=== PATIENT | male | born 1965 | race Caucasian/White ===

== ENCOUNTER 2019-09-13 21:39 | Inpatient (IN) | payer MEDICARE ==
[~2019-09-13] VITALS: Ht 182.9 cm; Wt 90.1 kg
[~2019-09-13 21:39] MED LIST: ACAM333T7 PO; AMLO-150 PO; BACI3.5O8 TP; CHLO10CA6 PO; ENAL10TA PO; HYDR25TA6 PO; METO25TA35 PO; MULT1TAB60 PO; QUET25TA7 PO; SERT100T32 PO; SERT50TA28 PO; SULF1TAB23 PO; THIA100T67 PO; TRAZ-137 PO
[2019-09-13] MEDS ORDERED: SODIUM CHLORIDE 0.9% 1,000ML IVBOLUS ONE (22:00)
[2019-09-13] MEDS ORDERED: MAGNESIUM SULFATE 1 GM, THIAMINE 100 MG, FOLIC ACID 1 MG, MVI ADULT 10 ML in SODIUM CHL... IV ONE (22:00)
[2019-09-13] MEDS ORDERED: ONDANSETRON 2MG/ML, 2ML IVPush ONE (22:00)
[2019-09-13] MEDS ORDERED: LORazepam 2 MG/ML, 1ML ONE (22:07)
[2019-09-13] MEDS ORDERED: ONDANSETRON 2MG/ML, 2ML ONE (22:09)
[2019-09-13] MEDS: LORazepam 2 MG/ML, 1ML IVPush PRN ×2 (22:23→22:49)
[2019-09-13 22:33] LABS: BASOPHILS # (AUTO) 0.03 x10^3/uL (0-0.1); BASOPHILS % (AUTO) 0 % (0-1); EOSINOPHILS # (AUTO) 0.01 x10^3/uL (0-0.4); EOSINOPHILS % (AUTO) 0 % (1-7); LYMPHOCYTES # (AUTO) 0.98 x10^3/uL (1-3.4); LYMPHOCYTES % (AUTO) 11 % (22-44); MD NO; MEAN CORPUSCULAR HEMOGLOBIN 27.6 pg (27.5-34.5); MEAN CORPUSCULAR HGB CONC 32.4 g/dL (33.2-36.2); MEAN CORPUSCULAR VOLUME 85.1 fL (81-97); MEAN PLATELET VOLUME 6.6 fL (7.4-10.4); MONOCYTES # (AUTO) 0.33 x10^3/uL (0.2-0.8); MONOCYTES % (AUTO) 4 % (2-9); NEUTROPHILS # (AUTO) 7.93 x10^3/uL (1.8-6.8); NEUTROPHILS % (AUTO) 86 % (42-75); PLATELET COUNT 447 x10^3/uL (130-400); RED CELL DISTRIBUTION WIDTH 21.8 % (9.4-14.8)
[2019-09-13 22:40] LABS: ALBUMIN 3.8 g/dL (3.4-5.0); ANION GAP 17 mmol/L (5-15); CALCIUM 8.1 mg/dL (8.5-10.1); CHLORIDE 105 mmol/L (98-107)
[2019-09-13 22:50] LABS: SALICYLATE LEVEL < 1.7 mg/dL (2.8-20.0)
[2019-09-13 22:51] LABS: ALKALINE PHOSPHATASE 93 U/L (45-117); BILIRUBIN,TOTAL 0.4 mg/dL (0.2-1.0); CREATININE 0.86 mg/dL (0.7-1.3); TOTAL PROTEIN 7.5 g/dL (6.4-8.2)
--- NOTE | 2019-09-13 23:11 | NUR ---
PT INTOXICATED AND DIFFICULT TO REASON WITH. PT CONTINUES TO TRY TO GET OUT OF BED AND HAS BEEN INFORMED TO STAY IN BED SEVERAL TIMES. ER PA NOTIFIED OF DIFFUCULTY WITH PT.
[2019-09-13 23:18] LABS: AMPHETAMINE SCREEN, URINE Negative (Negative); BARBITURATE SCREEN, URINE Negative (Negative); BENZODIAZEPINE SCREEN, URINE Negative (Negative); CANNABINOID SCREEN, URINE Negative (Negative); COCAINE SCREEN, URINE Negative (Negative); METHADONE SCREEN, URINE Negative (Negative); OPIATE SCREEN, URINE Negative (Negative)
[2019-09-13 23:18] LABS: ALANINE AMINOTRANSFERASE 43 U/L (12-78)
--- NOTE | 2019-09-13 23:20 | NUR ---
LAB CALLS WITH CRITICAL ETOH [id number]
--- NOTE | 2019-09-13 23:21 | NUR ---
PT REMOVED ALL MONITORING DEVICES
--- NOTE | 2019-09-13 23:33 | NUR ---
BOTH BEDRAILS UP, PT INFORMED BY ME AND DR GONZALEZ THAT IF HE ATTEMPTS TO GET OUT OF BED ONE MORE TIME SECURITY WILL BE IN TO RESTRAIN HIM TO THE BED. PT KEEPS STATING HE WANTS MORE ATIVAN FOR SLEEP. DOOR CLOSED TO PT ROOM AND SITTER WAS INFORMED NOT TO GO IN ROOM AND TO LET ME KNOW IF PT TRIES TO GET OUT OF BED AGAIN.
[2019-09-14] VITALS (7 sets, daily range): BP systolic 157–187; BP diastolic 71–114
--- NOTE | 2019-09-14 | NUR ---
PT CONTINUES TO YELL FROM ROOM AND ATTEMPT TO GET OUT OF BED. PT UP AND BANGING ON THE DOOR BECUASE HE CANT FIGURE OUT HOW TO OPEN IT. SECURITY CALLED AND 4POINT EVANGELISTA LOCKING RESTRAINTS APPLIED.
[2019-09-14] MEDS ORDERED: LORazepam 2 MG/ML, 1ML ONE ×3 (01:18→09:58)
[2019-09-14] MEDS: LORazepam 2 MG/ML, 1ML IVPush PRN ×2 (01:23→08:32)
--- NOTE | 2019-09-14 01:23 | NUR ---
TASK RN: IVF CONTINUES TO INFUSE. PT YELLING, "I FEEL LIKE I'M IN A BONDAGE MOVIE, I HAVE TO COME OUT OF THESE RESTRAINTS". PT NOTABLY TREMULOUS & TACHY. MEDICATED PER EMAR WITH ATIVAN. PT IRATE, BUT IS RATIONAL AT THIS TIME. MADE AWARE THAT RESTRAINTS WILL BE REMOVED [facility] IMPROVEMENT IN BEHAVIOR. PT DEMONSTRATES UNDERSTANDING. SPO2 >90% ON RA.
--- NOTE | 2019-09-14 01:40 | NUR ---
PT CONTINUES TO YELL FROM ROOM
[2019-09-14] MEDS ORDERED: ZIPRASIDONE 20 MG INJ IM ONE ×2 (01:50→02:00)
--- NOTE | 2019-09-14 02:09 | NUR ---
ER MD GONZALEZ IN TO REASSESS PT. ORDERES RCIEVED FOR SANTY ANDREWS. PT MEDICATED AND PT INFORMED THAT IF HE CONTINUES TO YELL AND ACT OUT, HE WILL CONTINUE TO NEED THE RESTRAINTS. ONCE BEHAVIOR HAS IMPORVED, RESTRAINTS CAN BE REMOVED. PT VERBALIZED UNDERSTANDING, ALTHOUGH CONTINUES TO YELL ANYWAY. WATER PROVIDED.
--- NOTE | 2019-09-14 02:43 | NUR ---
PT CALMER AND DOZING INTERMITTANTLY. 2 LOWER EXTREMITY RESTRAINTS REMOVED. PT WITH HR IN THE 120S/130S. ER MD GONZALEZ AND LANCE SKY NOTIFIED.
--- NOTE | 2019-09-14 03:06 | NUR ---
PT HAS GONE A TOTAL OF 1 HOUR WITH OUT YELLING OR BEHAVING BADLY. ALL RESTRAINTS REMOVED. SALVATORE JAVIER AND JOSE DANIEL NOTIFIED.
--- NOTE | 2019-09-14 03:29 | NUR ---
PT REMAINS CALM AND COOPERATIVE. PT PROVIDED SNACKS PER REQUEST.
--- NOTE | 2019-09-14 04:27 | NUR ---
PT RESTING ON GURNEY WITH EYES CLOSED. RESPIRATIONS EVEN AND UNLABORED. SITTER AT BEDSIDE FOR FREQUENT CHECKS.
--- NOTE | 2019-09-14 06:04 | NUR ---
MEAL TRAY ORDERED
--- NOTE | 2019-09-14 06:29 | NUR ---
PT STATES HE DOES NOT WANT TO LIVE ANYMORE BUT HAS NO PLAN TO ACTUALLY TAKE HIS LIFE AND HAS NOT HAD ANY THOUGHTS ABOUT HOW HE MIGHT DO IT
[2019-09-14] MEDS ORDERED: CHLORDIAZEPOXIDE 25 MG CAPSULE PO PRN (06:30)
--- NOTE | 2019-09-14 07:06 | NUR ---
REPORT RECEIVED FROM JOSEMANUEL CERRATO.
--- NOTE | 2019-09-14 07:13 | NUR ---
MEDICATION ORDERED FROM PHARMACY AT THIS TIME.
--- NOTE | 2019-09-14 07:19 | NUR ---
WATER GIVEN AT THIS TIME.
--- NOTE | 2019-09-14 07:40 | NUR ---
PT MEDICATED PER EMAR. PT TOLERATED WELL.
--- NOTE | 2019-09-14 07:49 | NUR ---
MEAL TRAY PROVIDED AT THIS TIME.
--- NOTE | 2019-09-14 08:34 | NUR ---
PT MEDICATED PER EMAR FOR ANXIETY. PT TOLERATED WELL.
--- NOTE | 2019-09-14 09:06 | NUR ---
PT MOVED TO ROOM 40 BECAUSE TV ROOM IN 38 NOT WORKING. PT ALEK LIKE TO WATCH TV AND LAMPS TESTER AND INSPECTOR NOTIFIED.
--- NOTE | 2019-09-14 09:50 | NUR ---
edmd at bedside to re-assess at this time. pt's aox4. resps even and unlabored.
[2019-09-14] MEDS ORDERED: LORazepam 2 MG/ML, 1ML IVPush PRN (10:00)
--- NOTE | 2019-09-14 10:02 | NUR ---
pt medicated per emar. pt tolerated well.
[2019-09-14] MEDS ORDERED: SODIUM CHLORIDE 0.9% 1,000 ML IV SCH (10:22)
[2019-09-14] MEDS ORDERED: ONDANSETRON 2MG/ML, 2ML IVPush PRN (10:30)
[2019-09-14] MEDS ORDERED: MULTIVITAMIN 1 TABLET PO SCH (10:30)
[2019-09-14] MEDS ORDERED: THIAMINE 100MG TABLET PO SCH (10:30)
[2019-09-14] MEDS ORDERED: LORazepam 0.5MG TABLET PO PRN (10:30)
[2019-09-14] MEDS ORDERED: LORazepam 2 MG/ML, 1ML IV PRN ×2 (10:30)
[2019-09-14] MEDS ORDERED: FOLIC ACID 1 MG TABLET PO SCH (10:30)
[2019-09-14] MEDS ORDERED: LORazepam 1MG TABLET PO PRN ×3 (10:30)
[2019-09-14] MEDS ORDERED: PROMETHAZINE 25 MG/ML, 1ML IM PRN (10:30)
--- NOTE | 2019-09-14 10:31 | NUR ---
report given to jesus degroot. all questions answered.
[2019-09-14] MEDS: LORazepam 2 MG/ML, 1ML IV PRN ×6 (11:23→22:58)
[2019-09-14] MEDS ORDERED: CHLORDIAZEPOXIDE 25 MG CAPSULE ONE (11:43)
[2019-09-14] MEDS ORDERED: CALCIUM CARBONATE 500 MG TABLET ONE (11:44)
[2019-09-14] MEDS ORDERED: ENOXAPARIN 40 MG/0.4 ML ONE (11:44)
[2019-09-14] MEDS ORDERED: THIAMINE 100MG TABLET ONE (11:44)
[2019-09-14] MEDS ORDERED: FOLIC ACID 1 MG TABLET ONE (11:44)
[2019-09-14] MEDS ORDERED: MULTIVITAMIN 1 TABLET ONE (11:44)
[2019-09-14] MEDS: CHLORDIAZEPOXIDE 25 MG CAPSULE PO SCH ×2 (12:16→19:59)
[2019-09-14] MEDS: CALCIUM CARBONATE 500 MG TABLET PO SCH ×2 (12:16→19:59)
[2019-09-14] MEDS: ENOXAPARIN 40 MG/0.4 ML SQ SCH (12:17)
[2019-09-14] MEDS ORDERED: KETOROLAC 30 MG/1 ML IVPush ONE (17:00)
[2019-09-14 19:07] LABS: MICROSCOPIC AUTO
[2019-09-14 19:08] LABS: CULTURE INDICATED? NO
[2019-09-14] MEDS: hydrALAzine 20 MG/ML, 1ML IVPush PRN (21:45)
[2019-09-14] MEDS: LABETALOL 5MG/ML, 20ML IVPush PRN (23:38)
[2019-09-15 00:02] VITALS: BP 164/99
[2019-09-15] MEDS: LORazepam 2 MG/ML, 1ML IV PRN ×4 (00:03→04:10)
[2019-09-15 00:49] VITALS: BP 168/95
[2019-09-15 01:43] VITALS: BP 166/115
[2019-09-15] MEDS: hydrALAzine 20 MG/ML, 1ML IVPush PRN ×2 (01:54→11:00)
[2019-09-15 02:30] VITALS: BP 155/104
[2019-09-15] MEDS ORDERED: DEXMEDETOMIDINE 200 MCG in SODIUM CHLORIDE 0.9% 48 ML IV PRN (04:58)
[2019-09-15] MEDS ORDERED: PHENOBARBITAL SODIUM 780 MG in SODIUM CHLORIDE 0.9% 50 ML IVPB ONE (05:00)
[2019-09-15] MEDS ORDERED: PHARMACY INSTRUCTION MC PRN ×4 (05:00)
[2019-09-15 06:14] LABS: ALANINE AMINOTRANSFERASE 46 U/L (12-78); ALBUMIN 3.1 g/dL (3.4-5.0); ANION GAP 10 mmol/L (5-15); BASOPHILS # (AUTO) 0.01 x10^3/uL (0-0.1); BASOPHILS % (AUTO) 0 % (0-1); CALCIUM 8.5 mg/dL (8.5-10.1); CHLORIDE 106 mmol/L (98-107); EOSINOPHILS # (AUTO) 0.06 x10^3/uL (0-0.4); EOSINOPHILS % (AUTO) 1 % (1-7); LYMPHOCYTES # (AUTO) 0.99 x10^3/uL (1-3.4); LYMPHOCYTES % (AUTO) 13 % (22-44); MD NO; MEAN CORPUSCULAR HEMOGLOBIN 27.4 pg (27.5-34.5); MEAN CORPUSCULAR HGB CONC 32.4 g/dL (33.2-36.2); MEAN CORPUSCULAR VOLUME 84.6 fL (81-97); MEAN PLATELET VOLUME 7.1 fL (7.4-10.4); MONOCYTES # (AUTO) 0.38 x10^3/uL (0.2-0.8); MONOCYTES % (AUTO) 5 % (2-9); NEUTROPHILS # (AUTO) 6.24 x10^3/uL (1.8-6.8); NEUTROPHILS % (AUTO) 81 % (42-75); PLATELET COUNT 236 x10^3/uL (130-400); RED BLOOD COUNT 3.98 x10^6/uL (4.38-5.82); RED CELL DISTRIBUTION WIDTH 21.1 % (9.4-14.8)
[2019-09-15 06:17] LABS: ALKALINE PHOSPHATASE 94 U/L (45-117); BILIRUBIN,TOTAL 0.9 mg/dL (0.2-1.0); CREATININE 0.67 mg/dL (0.7-1.3); TOTAL PROTEIN 6.3 g/dL (6.4-8.2)
[2019-09-15] MEDS: POTASSIUM CHLORIDE 20 MEQ, MAGNESIUM SULFATE 1 GM, THIAMINE 200 MG, FOLIC ACID 1 MG, MV... IV SCH (08:26)
[2019-09-15] MEDS: CALCIUM CARBONATE 500 MG TABLET PO SCH (08:27)
[2019-09-15] MEDS: ENOXAPARIN 40 MG/0.4 ML SQ SCH (09:41)
[2019-09-15] MEDS ORDERED: SODIUM CHLORIDE 0.9% 1,000 ML IV SCH (10:22)
[2019-09-15] MEDS ORDERED: SODIUM CHLORIDE 0.9% IVPB ONE (10:30)
[2019-09-15] MEDS ORDERED: PHENOBARBITAL SODIUM IVPB ONE (10:30)
[2019-09-15] MEDS ORDERED: PHENOBARBITAL ETOH DETOX PER PHARMACY MC PRN (11:00)
[2019-09-15] MEDS: OXYcodone IR 5MG TABLET PO PRN ×2 (14:20→15:14)
[2019-09-15] MEDS: PHENOBARBITAL 20 MG/5 ML ORAL SOL PO SCH (16:44)
[2019-09-15] MEDS ORDERED: PHENOBARBITAL SODIUM 65 MG/ML, 1ML IM SCH (17:00)
[2019-09-16 04:44] LABS: ANION GAP 8 mmol/L (5-15); CALCIUM 8.4 mg/dL (8.5-10.1); CHLORIDE 103 mmol/L (98-107)
[2019-09-16 04:45] LABS: CREATININE 0.57 mg/dL (0.7-1.3)
[2019-09-16] MEDS: PHENOBARBITAL 20 MG/5 ML ORAL SOL PO SCH ×2 (05:13→17:41)
[2019-09-16] MEDS ORDERED: POTASSIUM CHLORIDE 20 MEQ TAB.ER.PRT PO ONE (07:00)
[2019-09-16] MEDS: POTASSIUM CHLORIDE 20 MEQ, MAGNESIUM SULFATE 1 GM, THIAMINE 200 MG, FOLIC ACID 1 MG, MV... IV SCH (08:15)
[2019-09-16] MEDS: ENOXAPARIN 40 MG/0.4 ML SQ SCH (11:09)
[2019-09-16] MEDS: OXYcodone IR 5MG TABLET PO PRN (21:24)
[2019-09-16] MEDS: LABETALOL 5MG/ML, 20ML IVPush PRN (21:37)
[2019-09-17] MEDS: PHENOBARBITAL 20 MG/5 ML ORAL SOL PO SCH ×2 (05:14→17:55)
[2019-09-17 08:00] VITALS: BP 135/86
[2019-09-17] MEDS: CARVEDILOL 6.25 MG TABLET PO SCH ×2 (08:44→17:55)
[2019-09-17] MEDS: ENOXAPARIN 40 MG/0.4 ML SQ SCH (08:44)
[2019-09-17] MEDS: LISINOPRIL 10 MG TABLET PO SCH ×2 (08:44→21:18)
[2019-09-17] MEDS: OXYcodone IR 5MG TABLET PO PRN ×4 (08:45→22:20)
[2019-09-17 15:09] VITALS: BP 109/73
[2019-09-17 17:50] VITALS: BP 137/91
[2019-09-17 19:38] VITALS: BP 119/61
[2019-09-18 01:47] VITALS: BP 130/90
[2019-09-18] MEDS: OXYcodone IR 5MG TABLET PO PRN ×3 (02:36→13:04)
[2019-09-18] MEDS: CARVEDILOL 6.25 MG TABLET PO SCH (06:03)
[2019-09-18] MEDS: PHENOBARBITAL 20 MG/5 ML ORAL SOL PO SCH ×2 (06:03→17:22)
[2019-09-18 07:20] VITALS: BP 136/86
[2019-09-18 09:48] LABS: ANION GAP 7 mmol/L (5-15); CALCIUM 8.3 mg/dL (8.5-10.1); CHLORIDE 106 mmol/L (98-107); CREATININE 0.76 mg/dL (0.7-1.3)
[2019-09-18 09:55] LABS: BASOPHILS # (AUTO) 0.02 x10^3/uL (0-0.1); BASOPHILS % (AUTO) 0 % (0-1); EOSINOPHILS # (AUTO) 0.37 x10^3/uL (0-0.4); EOSINOPHILS % (AUTO) 6 % (1-7); LYMPHOCYTES # (AUTO) 1.05 x10^3/uL (1-3.4); LYMPHOCYTES % (AUTO) 16 % (22-44); MD NO; MEAN CORPUSCULAR HEMOGLOBIN 27.1 pg (27.5-34.5); MEAN CORPUSCULAR HGB CONC 31.6 g/dL (33.2-36.2); MEAN CORPUSCULAR VOLUME 85.9 fL (81-97); MEAN PLATELET VOLUME 6.8 fL (7.4-10.4); MONOCYTES # (AUTO) 0.39 x10^3/uL (0.2-0.8); MONOCYTES % (AUTO) 6 % (2-9); NEUTROPHILS # (AUTO) 4.77 x10^3/uL (1.8-6.8); NEUTROPHILS % (AUTO) 72 % (42-75); PLATELET COUNT 271 x10^3/uL (130-400); RED BLOOD COUNT 4.22 x10^6/uL (4.38-5.82); RED CELL DISTRIBUTION WIDTH 21.2 % (9.4-14.8)
[2019-09-18 09:57] VITALS: BP 120/69
[2019-09-18] MEDS: LISINOPRIL 10 MG TABLET PO SCH (09:58)
[2019-09-18] MEDS: ENOXAPARIN 40 MG/0.4 ML SQ SCH (09:58)
[2019-09-18] MEDS: POTASSIUM CHLORIDE 20 MEQ, MAGNESIUM SULFATE 1 GM, THIAMINE 200 MG, FOLIC ACID 1 MG, MV... IV SCH (13:03)
[2019-09-18 13:39] VITALS: BP 134/72
[2019-09-18] MEDS ORDERED: CARV6.2512 PO (14:47)
[2019-09-18] MEDS ORDERED: PHEN20EL8 PO (14:47)
[2019-09-18] MEDS ORDERED: LISI-167 PO (14:47)
[2019-09-19] MEDS ORDERED: PHENOBARBITAL 20 MG/5 ML ORAL SOL PO SCH (17:00)
[2019-09-20] MEDS ORDERED: PHENOBARBITAL 20 MG/5 ML ORAL SOL PO SCH (17:00)
== END 2019-09-18 17:31 | DRG 896 ==
LOC: ED 22:12 → EDIP 09-14 11:16 → 4EST 09-14 11:37 → CCU 09-15 02:56 → 4EST 09-17 14:50
PROVIDERS: ADMIT Internal Medicine; ATTEND Internal Medicine
DX: F10.231 Alcohol dependence with withdrawal delirium (principal); G93.41 Metabolic encephalopathy; R45.851 Suicidal ideations; E87.2 Acidosis; K70.10 Alcoholic hepatitis without ascites; Y90.8 Blood alcohol level of 240 mg/100 ml or more; K70.9 Alcoholic liver disease, unspecified; D64.9 Anemia, unspecified; E78.5 Hyperlipidemia, unspecified; E83.51 Hypocalcemia; F10.229 Alcohol dependence with intoxication, unspecified; F32.9 Major depressive disorder, single episode, unspecified; F41.9 Anxiety disorder, unspecified; F91.9 Conduct disorder, unspecified; G47.00 Insomnia, unspecified; I10 Essential (primary) hypertension; Z78.1 Physical restraint status; Z91.5 Personal history of self-harm; Z79.899 Other long term (current) drug therapy
CPT/HCPCS: 36415; 70450; 80048; 80053; 80307; 81001; 83605; 83690; 83735; 84100; 85025; 87081; 93005; 96361; 96365; 96366; 96372; 96375; 96376; G0378; J1650; J1885; J2405; J2560; J3411; J3475; J3480; J3486; J0360; J2060; J7030

== ENCOUNTER 2019-09-18 14:52 | Inpatient (IN) | payer MEDICARE ==
[~2019-09-18] VITALS: Ht 188 cm; Wt 89.7 kg
[~2019-09-18 14:52] MED LIST changes: +CARV6.2512 PO; +LISI-167 PO; +PHEN20EL8 PO
[2019-09-18] MEDS ORDERED: POLYETHYLENE GLYCOL 17 GM PACKET PO PRN (15:30)
[2019-09-18] MEDS ORDERED: BISACODYL 10 MG SUPP PR PRN (15:30)
[2019-09-18] MEDS ORDERED: DOCUSATE 100 MG CAPSULE PO PRN (15:30)
[2019-09-18] MEDS ORDERED: PLEASE ENTER HEIGHT AND WEIGHT MC SCH (18:00)
[2019-09-18 18:04] LABS: FREE T4 (FREE THYROXINE) 1.11 ng/dL (0.76-1.46)
[2019-09-18 18:31] VITALS: BP 151/99
[2019-09-18 19:33] VITALS: BP 120/86
[2019-09-18] MEDS: TRAZODONE 100MG TABLET PO PRN (20:02)
[2019-09-18] MEDS: QUETIAPINE 25MG TABLET PO PRN (20:02)
[2019-09-18] MEDS: ACAMPROSATE 333 MG TABLET.DR PO SCH (20:02)
[2019-09-19 07:28] VITALS: BP 127/84
[2019-09-19] MEDS: ACAMPROSATE 333 MG TABLET.DR PO SCH ×3 (08:26→20:45)
[2019-09-19] MEDS: QUETIAPINE 25MG TABLET PO PRN (08:59)
[2019-09-19] MEDS ORDERED: SERTRALINE 100MG TABLET PO SCH (09:00)
[2019-09-19 19:27] VITALS: BP 144/83
[2019-09-20 07:30] VITALS: BP 117/78
[2019-09-20] MEDS: QUETIAPINE 25MG TABLET PO PRN ×2 (08:26→16:14)
[2019-09-20] MEDS: SERTRALINE 100MG TABLET PO SCH (08:26)
[2019-09-20] MEDS: ACAMPROSATE 333 MG TABLET.DR PO SCH ×3 (08:37→20:33)
[2019-09-20 19:44] VITALS: BP 142/75
[2019-09-20] MEDS: TRAZODONE 100MG TABLET PO PRN (20:34)
[2019-09-20] MEDS: ACETAMINOPHEN 325 MG TABLET PO PRN (20:34)
[2019-09-21 07:35] VITALS: BP 136/83
[2019-09-21] MEDS: ACAMPROSATE 333 MG TABLET.DR PO SCH ×4 (08:53→20:38)
[2019-09-21] MEDS: SERTRALINE 100MG TABLET PO SCH (08:53)
[2019-09-21] MEDS: QUETIAPINE 25MG TABLET PO PRN ×2 (10:08→15:59)
[2019-09-21 20:09] VITALS: BP 119/72
[2019-09-21] MEDS: TRAZODONE 100MG TABLET PO PRN (22:03)
[2019-09-22] MEDS: QUETIAPINE 25MG TABLET PO PRN ×3 (04:39→23:07)
[2019-09-22 07:30] VITALS: BP 134/92
[2019-09-22] MEDS: SERTRALINE 100MG TABLET PO SCH (07:45)
[2019-09-22] MEDS: ACAMPROSATE 333 MG TABLET.DR PO SCH ×3 (08:13→21:00)
[2019-09-22] MEDS: NICOTINE GUM 2 MG BC PRN ×2 (16:46→21:03)
[2019-09-22 19:00] VITALS: BP 128/79
[2019-09-22] MEDS: TRAZODONE 100MG TABLET PO PRN (21:04)
[2019-09-23] MEDS: NICOTINE GUM 2 MG BC PRN ×4 (05:12→20:04)
[2019-09-23 07:24] VITALS: BP 124/81
[2019-09-23] MEDS: SERTRALINE 100MG TABLET PO SCH (08:30)
[2019-09-23] MEDS: ACAMPROSATE 333 MG TABLET.DR PO SCH ×4 (08:30→21:52)
[2019-09-23] MEDS: QUETIAPINE 25MG TABLET PO PRN ×3 (08:31→23:55)
[2019-09-23] MEDS: ACETAMINOPHEN 325 MG TABLET PO PRN (08:34)
[2019-09-23 19:15] VITALS: BP 144/86
[2019-09-23] MEDS: TRAZODONE 100MG TABLET PO PRN (21:52)
[2019-09-24] MEDS: NICOTINE GUM 2 MG BC PRN ×5 (00:05→21:29)
[2019-09-24 07:39] VITALS: BP 136/85
[2019-09-24] MEDS: ACAMPROSATE 333 MG TABLET.DR PO SCH ×3 (08:23→20:27)
[2019-09-24] MEDS: SERTRALINE 100MG TABLET PO SCH (08:32)
[2019-09-24] MEDS: QUETIAPINE 25MG TABLET PO PRN ×2 (08:34→14:35)
[2019-09-24 19:34] VITALS: BP 126/82
[2019-09-25] MEDS: TRAZODONE 100MG TABLET PO PRN (00:07)
[2019-09-25] MEDS: QUETIAPINE 25MG TABLET PO PRN ×3 (00:07→20:48)
[2019-09-25 07:30] VITALS: BP 119/78
[2019-09-25] MEDS: ACAMPROSATE 333 MG TABLET.DR PO SCH ×3 (08:47→21:00)
[2019-09-25] MEDS: SERTRALINE 100MG TABLET PO SCH (08:55)
[2019-09-25] MEDS: NICOTINE GUM 2 MG BC PRN ×3 (08:57→17:57)
[2019-09-25 19:08] VITALS: BP 126/84
[2019-09-26 07:41] VITALS: BP 145/101
[2019-09-26] MEDS: SERTRALINE 100MG TABLET PO SCH (08:45)
[2019-09-26] MEDS: ACAMPROSATE 333 MG TABLET.DR PO SCH ×3 (08:47→20:25)
[2019-09-26] MEDS: NICOTINE GUM 2 MG BC PRN ×3 (10:30→18:32)
[2019-09-26] MEDS: QUETIAPINE 25MG TABLET PO PRN ×2 (12:34→21:26)
[2019-09-26 19:27] VITALS: BP 148/89
[2019-09-26] MEDS: TRAZODONE 100MG TABLET PO PRN (21:26)
[2019-09-27] MEDS: NICOTINE GUM 2 MG BC PRN ×4 (03:58→18:12)
[2019-09-27 07:24] VITALS: BP 132/85
[2019-09-27] MEDS: ACETAMINOPHEN 325 MG TABLET PO PRN (08:25)
[2019-09-27] MEDS: SERTRALINE 100MG TABLET PO SCH (08:25)
[2019-09-27] MEDS: ACAMPROSATE 333 MG TABLET.DR PO SCH (08:25)
[2019-09-27] MEDS: QUETIAPINE 25MG TABLET PO PRN ×2 (12:32→20:02)
[2019-09-27 19:38] VITALS: BP 143/83
[2019-09-27] MEDS: TRAZODONE 100MG TABLET PO PRN (20:01)
[2019-09-28] MEDS: NICOTINE GUM 2 MG BC PRN ×3 (05:03→15:04)
[2019-09-28 07:34] VITALS: BP 118/80
[2019-09-28] MEDS: SERTRALINE 100MG TABLET PO SCH (08:29)
[2019-09-28] MEDS: QUETIAPINE 25MG TABLET PO PRN ×2 (08:29→14:18)
[2019-09-28] MEDS ORDERED: TRAZ-137 PO (13:44)
[2019-09-28] MEDS ORDERED: SERT100T32 PO (13:44)
[2019-09-28] MEDS ORDERED: TRAM50TA2 PO (13:44)
[2019-09-28] MEDS ORDERED: CARV6.2512 PO (13:44)
[2019-09-28] MEDS ORDERED: LISI-167 PO (13:44)
== END 2019-09-28 16:25 | disposition home or self-care (01) | DRG 885 ==
LOC: 3E 17:31
PROVIDERS: ADMIT Psychiatry & Neurology Psychosomatic Medicine; ATTEND Psychiatry & Neurology Psychosomatic Medicine
DX: F33.2 Major depressive disorder, recurrent severe without psychotic features (principal); R45.851 Suicidal ideations; G89.29 Other chronic pain; I10 Essential (primary) hypertension; F10.20 Alcohol dependence, uncomplicated; Z79.899 Other long term (current) drug therapy; I25.10 Atherosclerotic heart disease of native coronary artery without angina pectoris; Z91.5 Personal history of self-harm; Z71.41 Alcohol abuse counseling and surveillance of alcoholic
CPT/HCPCS: 36415; 83690; 84439; 84443

== ENCOUNTER 2019-10-24 19:27 | Emergency (ER) | payer MEDICARE ==
[~2019-10-24] VITALS: Ht 177.8 cm; Wt 89.7 kg
[~2019-10-24 19:27] MED LIST changes: +TRAM50TA2 PO; -TRAZ-137 PO; +TRAZ-175 PO
[2019-10-24 19:33] VITALS: BP 140/90
--- NOTE | 2019-10-24 19:57 | NUR ---
PT BEING EVALUATED BY DR LOTT AT THIS TIME
--- NOTE | 2019-10-24 20:21 | NUR ---
DENIES SI TO MD AT [facility] TIME, WILL BE MTF, WATER GIVEN ON REQUEST.
--- NOTE | 2019-10-24 20:29 | NUR ---
PT UP TO BR WITH STEADY GAIT, NO COMPLAINTS.
[2019-10-24] MEDS ORDERED: DIAZEPAM 5 MG TABLET ONE (20:38)
--- NOTE | 2019-10-24 20:41 | NUR ---
PT STATED HE WAS GETTING SHAKEY AND REQUESTING MEDS AND DISCHARGE. VALIUM GIVEN PER MD ORDER, PT DC'D WITH STEADY GAIT AND TAXI VOUCHER HOME
[2019-10-24] MEDS ORDERED: DIAZEPAM 5 MG TABLET PO ONE (21:00)
== END 2019-10-24 20:45 | disposition home or self-care (01) ==
LOC: ED 20:39
DX: F10.10 Alcohol abuse, uncomplicated (principal); Y90.9 Presence of alcohol in blood, level not specified
CPT/HCPCS: 99283

== ENCOUNTER 2019-12-12 13:58 | Inpatient (IN) | payer MEDICARE ==
[~2019-12-12] VITALS: Ht 188 cm; Wt 90.2 kg
--- NOTE | 2019-12-12 14:13 | NUR ---
ASSUMED CARE OF PATIENT. PT BIB [facility] FOR A [facility]. PATIENT REPORTS HE USUALLY DRINKS 1/2 A GALLON OF ALOCHOL A DAY AND HAS NOT HAD ANY TODAY. PT ALSO REPORTS HE HAS NOT HAD ANYTHING TO EAT IN 7 DAYS. WALLPAPER CONSULTANT ON SINUS TACH NOTED. VS STABLE. PT GIVEN THE CALL LIGHT. WILL CONTINUE TO MONITOR.
[2019-12-12] MEDS ORDERED: LORazepam 2 MG/ML, 1ML ONE ×2 (14:27→15:13)
[2019-12-12] MEDS ORDERED: SODIUM CHLORIDE FLUSH 10ML SYR IVF ONE (14:30)
[2019-12-12] MEDS ORDERED: SODIUM CHLORIDE 0.9% 1,000ML IVBOLUS ONE (14:30)
[2019-12-12] MEDS ORDERED: MAGNESIUM SULFATE 1 GM, THIAMINE 100 MG, FOLIC ACID 1 MG, MVI ADULT 10 ML in SODIUM CHL... IV ONE (14:30)
[2019-12-12] MEDS: LORazepam 2 MG/ML, 1ML IVPush PRN ×2 (14:31→15:16)
--- NOTE | 2019-12-12 14:34 | NUR ---
PT WENT TO CT
--- NOTE | 2019-12-12 15:03 | NUR ---
PT RESTING IN ROOM. NO ACUTE DISTRESS NOTED. CALL LIGHT IN PLACE. WILL CONTINUE TO MONITOR.
[2019-12-12 15:19] LABS: ALBUMIN 3.3 g/dL (3.4-5.0); ANION GAP 21 mmol/L (5-15); CHLORIDE 94 mmol/L (98-107)
[2019-12-12 15:23] LABS: ALANINE AMINOTRANSFERASE 101 U/L (12-78); ALKALINE PHOSPHATASE 81 U/L (45-117); BILIRUBIN,TOTAL 1.8 mg/dL (0.2-1.0); CREATININE 0.88 mg/dL (0.7-1.3); TOTAL PROTEIN 6.9 g/dL (6.4-8.2)
[2019-12-12 15:26] LABS: BASOPHILS % (AUTO) 0 % (0-1); EOSINOPHILS # (AUTO) 0.01 x10^3/uL (0-0.4); EOSINOPHILS % (AUTO) 0 % (1-7); LYMPHOCYTES % (AUTO) 6 % (22-44); MD MORPH REVIEW ONLY; MEAN CORPUSCULAR HEMOGLOBIN 28.5 pg (27.5-34.5); MEAN CORPUSCULAR HGB CONC 32.9 g/dL (33.2-36.2); MEAN CORPUSCULAR VOLUME 86.6 fL (81-97); MEAN PLATELET VOLUME 6.9 fL (7.4-10.4); MONOCYTES # (AUTO) 0.39 x10^3/uL (0.2-0.8); MONOCYTES % (AUTO) 7 % (2-9); NEUTROPHILS # (AUTO) 4.74 x10^3/uL (1.8-6.8); NEUTROPHILS % (AUTO) 87 % (42-75); PLATELET COUNT 164 x10^3/uL (130-400); RED BLOOD COUNT 4.02 x10^6/uL (4.38-5.82); RED CELL DISTRIBUTION WIDTH 29.7 % (9.4-14.8)
[2019-12-12 15:27] LABS: ANISOCYTOSIS 1+; MICROCYTOSIS 1+; POLYCHROMASIA 1+
[2019-12-12 15:28] LABS: <PLATELET ESTIMATE> ADEQUATE; OVALOCYTES 1+; SMALL PLATELETS 1+
--- NOTE | 2019-12-12 15:39 | NUR ---
PT TRING TO GET OUT OF BED BY HIMSELF. PT IS NOT STABLE ON FEET. PT MOVED TO A CAMERA ROOM WITH A SITTER FOR PATIENT SAFETY. PT GIVEN THE CALL LIGHT AND INSTRUCTED HOW TO USE IT. VS STABLE. REPORT GIVEN TO SAQIB TRIPLETT
--- NOTE | 2019-12-12 15:50 | NUR ---
REPORT FROM SERGEI RN (PATIENT TRANSFERRED FROM SEPERATE POD TO UTILIZE SITTER PATIENT ATTEMPTING TO GET OUT OF BED DESPITE BEING UNSTABLE) PLACED ON GEOLOGIST PETROLEUM-VSS HR NOW 90. DORWSY WHEN NOT INTERACTED WITH. MAINT IVF/VITAMIN IVF INFUSING DR. GUZMAN AT BEDSIDE TO ADMIT
[2019-12-12 16:09] LABS: PROTHROMBIN TIME 10.6 Seconds (9.6-11.5)
[2019-12-12] MEDS ORDERED: ONDANSETRON 2MG/ML, 2ML IVPush PRN (16:30)
[2019-12-12] MEDS ORDERED: LORazepam 2 MG/ML, 1ML IV PRN ×5 (16:30)
[2019-12-12] MEDS ORDERED: LORazepam 1MG TABLET PO PRN ×2 (16:30)
[2019-12-12] MEDS ORDERED: FOLIC ACID 1 MG TABLET PO ONE (16:30)
[2019-12-12] MEDS ORDERED: CHLORDIAZEPOXIDE 25 MG CAPSULE ONE (16:39)
--- NOTE | 2019-12-12 16:40 | NUR ---
CXR AND US AT BEDSIDE
[2019-12-12] MEDS: CHLORDIAZEPOXIDE 25 MG CAPSULE PO SCH ×2 (16:47→20:19)
--- NOTE | 2019-12-12 16:49 | NUR ---
MEDICATED PER EMAR FOR CONTINUED ANXIETY (MODERATE TREMORS) D/T STIMULATION FOR INPATIENT TESTERS (CXR, ULTRASOUND,ETC) OTHERWISE PATIENT WOULD REMAIN DEEP ASLEEP 1L NS COMPLETE (STOPPED IN IV SPREADSHEETS) mULTIVITAMIN INFUSION COMPLETE WELL (STOPPED IN IV SPREADSHEETS)
--- NOTE | 2019-12-12 16:52 | NUR ---
COMPLETED MED RECC COMPLETED (PATIENT TAKES NO MEDS AT HOME)
--- NOTE | 2019-12-12 17:15 | NUR ---
MOO FOR FURTHER FOLIC ACID CLARIFIED WITH PROVIDER FOLIC ACID IN MULTIVITAMIN INFUSION
[2019-12-12] MEDS: LACTATED RINGERS 1,000 ML IV SCH (18:01)
[2019-12-12] MEDS: ONDANSETRON ODT 4 MG PO PRN (18:09)
[2019-12-12 20:29] VITALS: BP 147/75
[2019-12-12] MEDS: morphine SULFATE 10 MG/ML, 1ML IVPush PRN (21:37)
[2019-12-12] MEDS: LORazepam 1MG TABLET PO PRN (21:37)
[2019-12-13] MEDS: ONDANSETRON ODT 4 MG PO PRN (00:13)
[2019-12-13] MEDS: LACTATED RINGERS 1,000 ML IV SCH ×4 (00:25→22:54)
[2019-12-13 00:28] VITALS: BP 157/92
[2019-12-13] MEDS: LORazepam 1MG TABLET PO PRN ×4 (03:51→13:46)
[2019-12-13 05:25] LABS: CHLORIDE 96 mmol/L (98-107)
[2019-12-13 05:33] LABS: ALANINE AMINOTRANSFERASE 78 U/L (12-78); ALBUMIN 3.1 g/dL (3.4-5.0); ALKALINE PHOSPHATASE 69 U/L (45-117); ANION GAP 10 mmol/L (5-15); BILIRUBIN,TOTAL 1.6 mg/dL (0.2-1.0); CALCIUM 8.4 mg/dL (8.5-10.1); CREATININE 0.64 mg/dL (0.7-1.3); INTERNATIONAL NORMALIZED RATIO 0.99 (0.93-1.1); PROTHROMBIN TIME 10.5 Seconds (9.6-11.5); TOTAL PROTEIN 6.3 g/dL (6.4-8.2)
[2019-12-13 06:20] LABS: MD YES; MEAN CORPUSCULAR HEMOGLOBIN 29.1 pg (27.5-34.5); MEAN CORPUSCULAR HGB CONC 33.4 g/dL (33.2-36.2); MEAN CORPUSCULAR VOLUME 87.4 fL (81-97); MEAN PLATELET VOLUME 6.9 fL (7.4-10.4); PLATELET COUNT 110 x10^3/uL (130-400); RED BLOOD COUNT 3.66 x10^6/uL (4.38-5.82); RED CELL DISTRIBUTION WIDTH 29.6 % (9.4-14.8)
[2019-12-13 06:23] LABS: ANISOCYTOSIS 1+; BAND#(MANUAL) 0.16 x10^3/uL; BANDS%(MANUAL) 4 % (0-7); EOS#(MANUAL) 0.04 x10^3/uL (0.0-0.4); EOS% (MANUAL) 1 % (1-7); LYMPH#(MANUAL) 0.52 x10^3/uL (1-3.4); LYMPHS% (MANUAL) 13 % (22-44); MONOS#(MANUAL) 0.28 x10^3/uL (0.3-2.7); MONOS% (MANUAL) 7 % (2-9); POLYCHROMASIA 1+; SEGS% (MANUAL) 75 % (42-75)
[2019-12-13 06:24] LABS: <PLATELET ESTIMATE> DECREASED; MICROCYTOSIS 1+; OVALOCYTES 1+; SMALL PLATELETS 1+
[2019-12-13 06:25] VITALS: BP 180/108
[2019-12-13] MEDS: hydrALAzine 20 MG/ML, 1ML IVPush PRN (06:32)
[2019-12-13 07:13] VITALS: BP 158/95
[2019-12-13] MEDS: CHLORDIAZEPOXIDE 25 MG CAPSULE PO SCH ×3 (07:52→20:23)
[2019-12-13 12:55] VITALS: BP 152/92
[2019-12-13] MEDS: KETOROLAC 30 MG/1 ML IM PRN ×2 (14:12→23:31)
[2019-12-13] MEDS: POTASSIUM CHLORIDE 20 MEQ TAB.ER.PRT PO SCH (16:24)
[2019-12-13] MEDS: LORazepam 0.5MG TABLET PO PRN (18:20)
[2019-12-13 20:13] VITALS: BP 156/79
[2019-12-13] MEDS: morphine SULFATE 10 MG/ML, 1ML IVPush PRN (20:24)
[2019-12-14 01:06] VITALS: BP 157/91
[2019-12-14 05:39] LABS: CHLORIDE 96 mmol/L (98-107)
[2019-12-14 05:45] LABS: ALANINE AMINOTRANSFERASE 63 U/L (12-78); ALBUMIN 2.9 g/dL (3.4-5.0); ALKALINE PHOSPHATASE 76 U/L (45-117); ANION GAP 9 mmol/L (5-15); BILIRUBIN,TOTAL 1.2 mg/dL (0.2-1.0); CALCIUM 8.6 mg/dL (8.5-10.1); CREATININE 0.56 mg/dL (0.7-1.3); TOTAL PROTEIN 6.1 g/dL (6.4-8.2)
[2019-12-14 05:53] LABS: MEAN CORPUSCULAR HEMOGLOBIN 29.6 pg (27.5-34.5); MEAN CORPUSCULAR HGB CONC 32.9 g/dL (33.2-36.2); MEAN CORPUSCULAR VOLUME 90.2 fL (81-97); MEAN PLATELET VOLUME 7.5 fL (7.4-10.4); PLATELET COUNT 114 x10^3/uL (130-400); RED BLOOD COUNT 3.77 x10^6/uL (4.38-5.82); RED CELL DISTRIBUTION WIDTH 29.5 % (9.4-14.8)
[2019-12-14] MEDS: LACTATED RINGERS 1,000 ML IV SCH (06:03)
[2019-12-14 06:37] LABS: BASOPHILS # (AUTO) 0.01 x10^3/uL (0-0.1); BASOPHILS % (AUTO) 0 % (0-1); EOSINOPHILS # (AUTO) 0.13 x10^3/uL (0-0.4); EOSINOPHILS % (AUTO) 3 % (1-7); LYMPHOCYTES # (AUTO) 0.64 x10^3/uL (1-3.4); LYMPHOCYTES % (AUTO) 14 % (22-44); MD SCAN; MONOCYTES # (AUTO) 0.38 x10^3/uL (0.2-0.8); MONOCYTES % (AUTO) 8 % (2-9); NEUTROPHILS # (AUTO) 3.32 x10^3/uL (1.8-6.8); NEUTROPHILS % (AUTO) 74 % (42-75)
[2019-12-14 07:20] VITALS: BP 156/88
[2019-12-14] MEDS ORDERED: POTASSIUM CHLORIDE 20 MEQ TAB.ER.PRT PO ONE (07:30)
[2019-12-14] MEDS ORDERED: POTASSIUM CHLORIDE 40 MEQ in SODIUM CHLORIDE 0.9% 500 ML IV ONE (07:30)
[2019-12-14] MEDS: CHLORDIAZEPOXIDE 25 MG CAPSULE PO SCH ×3 (08:17→20:22)
[2019-12-14] MEDS: AMLODIPINE 10 MG TAB PO SCH (08:18)
[2019-12-14] MEDS: POTASSIUM CHLORIDE 20 MEQ TAB.ER.PRT PO SCH (08:20)
[2019-12-14] MEDS: LORazepam 0.5MG TABLET PO PRN ×3 (08:31→18:05)
[2019-12-14 12:27] VITALS: BP 156/103
[2019-12-14 15:31] VITALS: BP 150/93
[2019-12-14] MEDS: KETOROLAC 30 MG/1 ML IM PRN (18:05)
[2019-12-14 19:11] VITALS: BP 154/84
[2019-12-14] MEDS: morphine SULFATE 10 MG/ML, 1ML IVPush PRN (20:23)
[2019-12-15] MEDS: morphine SULFATE 10 MG/ML, 1ML IVPush PRN (00:14)
[2019-12-15] MEDS: LORazepam 1MG TABLET PO PRN (00:20)
[2019-12-15 01:15] VITALS: BP 129/83
[2019-12-15 05:45] LABS: ALANINE AMINOTRANSFERASE 81 U/L (12-78); ALBUMIN 2.9 g/dL (3.4-5.0); ANION GAP 6 mmol/L (5-15); CALCIUM 8.9 mg/dL (8.5-10.1); CHLORIDE 99 mmol/L (98-107); CREATININE 0.57 mg/dL (0.7-1.3)
[2019-12-15 05:47] LABS: ALKALINE PHOSPHATASE 100 U/L (45-117); TOTAL PROTEIN 6.5 g/dL (6.4-8.2)
[2019-12-15] MEDS: KETOROLAC 30 MG/1 ML IM PRN (05:53)
[2019-12-15 05:54] LABS: MEAN CORPUSCULAR HEMOGLOBIN 29.6 pg (27.5-34.5); MEAN CORPUSCULAR HGB CONC 32.9 g/dL (33.2-36.2); MEAN CORPUSCULAR VOLUME 89.9 fL (81-97); MEAN PLATELET VOLUME 7.2 fL (7.4-10.4); PLATELET COUNT 165 x10^3/uL (130-400); RED CELL DISTRIBUTION WIDTH 29.8 % (9.4-14.8)
[2019-12-15 06:11] LABS: BASOPHILS # (AUTO) 0.02 x10^3/uL (0-0.1); BASOPHILS % (AUTO) 1 % (0-1); EOSINOPHILS # (AUTO) 0.14 x10^3/uL (0-0.4); EOSINOPHILS % (AUTO) 4 % (1-7); LYMPHOCYTES # (AUTO) 0.55 x10^3/uL (1-3.4); LYMPHOCYTES % (AUTO) 16 % (22-44); MD SCAN; MONOCYTES # (AUTO) 0.25 x10^3/uL (0.2-0.8); MONOCYTES % (AUTO) 7 % (2-9); NEUTROPHILS % (AUTO) 73 % (42-75)
[2019-12-15] MEDS: LORazepam 0.5MG TABLET PO PRN (06:11)
[2019-12-15 06:47] VITALS: BP 138/87
[2019-12-15] MEDS: AMLODIPINE 10 MG TAB PO SCH (09:06)
[2019-12-15] MEDS: POTASSIUM CHLORIDE 20 MEQ TAB.ER.PRT PO SCH ×2 (09:06→16:03)
[2019-12-15] MEDS: CHLORDIAZEPOXIDE 25 MG CAPSULE PO SCH (09:07)
[2019-12-15 09:30] VITALS: BP 157/108
[2019-12-15] MEDS: hydrALAzine 20 MG/ML, 1ML IVPush PRN (09:32)
[2019-12-15] MEDS: THIAMINE 100MG TABLET PO SCH (09:32)
[2019-12-15] MEDS: FOLIC ACID 1 MG TABLET PO SCH (09:32)
[2019-12-15 13:24] VITALS: BP 125/81
[2019-12-15 13:30] VITALS: BP 127/84
[2019-12-15] MEDS: CHLORDIAZEPOXIDE 10 MG CAPSULE PO SCH ×2 (16:03→20:28)
[2019-12-15 18:54] VITALS: BP 142/90
[2019-12-16 02:24] VITALS: BP 137/87
[2019-12-16] MEDS: LORazepam 1MG TABLET PO PRN (04:48)
[2019-12-16 05:41] LABS: ANION GAP 6 mmol/L (5-15); CALCIUM 9.2 mg/dL (8.5-10.1); CHLORIDE 104 mmol/L (98-107)
[2019-12-16 05:47] LABS: ALANINE AMINOTRANSFERASE 207 U/L (12-78); ALKALINE PHOSPHATASE 131 U/L (45-117); BILIRUBIN,TOTAL 0.9 mg/dL (0.2-1.0); CREATININE 0.64 mg/dL (0.7-1.3); TOTAL PROTEIN 6.7 g/dL (6.4-8.2)
[2019-12-16 07:50] VITALS: BP 139/103
[2019-12-16] MEDS: AMLODIPINE 10 MG TAB PO SCH (08:48)
[2019-12-16] MEDS: POTASSIUM CHLORIDE 20 MEQ TAB.ER.PRT PO SCH (08:48)
[2019-12-16] MEDS: CHLORDIAZEPOXIDE 10 MG CAPSULE PO SCH (08:48)
[2019-12-16] MEDS: THIAMINE 100MG TABLET PO SCH (08:48)
[2019-12-16] MEDS: FOLIC ACID 1 MG TABLET PO SCH (08:48)
[2019-12-16] MEDS ORDERED: THIA100T67 PO (11:20)
[2019-12-16] MEDS ORDERED: FOLI-17 PO (11:20)
[2019-12-16] MEDS ORDERED: ONDA4TAB13 PO (11:20)
[2019-12-16] MEDS ORDERED: AMLO10TA8 PO (11:20)
[2019-12-16 12:56] VITALS: BP 138/91
== END 2019-12-16 16:30 | DRG 432 ==
LOC: ED 15:29 → SUATTDRO 15:49 → EDIP 16:22 → 4EST 17:21
PROVIDERS: ADMIT Hospitalist; ATTEND Internal Medicine Infectious Disease
DX: K70.10 Alcoholic hepatitis without ascites (principal); J96.01 Acute respiratory failure with hypoxia; K85.90 Acute pancreatitis without necrosis or infection, unspecified; E87.2 Acidosis; F10.239 Alcohol dependence with withdrawal, unspecified; F10.229 Alcohol dependence with intoxication, unspecified; D64.9 Anemia, unspecified; E87.6 Hypokalemia; F32.9 Major depressive disorder, single episode, unspecified; F41.1 Generalized anxiety disorder; I10 Essential (primary) hypertension; K76.0 Fatty (change of) liver, not elsewhere classified; Z91.5 Personal history of self-harm; W18.39XA Other fall on same level, initial encounter; Y93.89 Activity, other specified; Y92.89 Other specified places as the place of occurrence of the external cause; Y99.8 Other external cause status
CPT/HCPCS: 36415; 70450; 71045; 76700; 80053; 80307; 82607; 82728; 83540; 83550; 83690; 83735; 84443; 85025; 85610; 93005; 96365; 96375; 96376; 99291; G0378; J1885; J3411; J3475; J3480; Q0162; J0360; J2060; J2270; J7030; J7040; J7120